=== PATIENT | male | born 1985 | race Caucasian/White ===

== ENCOUNTER 2021-01-13 09:56 | Emergency (ER) | payer OTHER ==
[~2021-01-13] VITALS: Ht 167.6 cm; Wt 90.7 kg
[2021-01-13] MEDS ORDERED: CLINDAMYCIN HC300 MG PO (10:22)
[2021-01-13] MEDS ORDERED: APAP W/CODEINE1 TA2 PO (10:22)
[2021-01-13 10:31] VITALS: BP 134/85
== END 2021-01-13 10:33 | disposition home or self-care (01) ==
LOC: M.ERS 09:56
DX: L02.03 Carbuncle of face (principal)